=== PATIENT | female | born 1950 | race American Indian/Alaskan Native ===

== ENCOUNTER 2016-04-13 11:05 | Outpatient (CLI) | payer MEDICARE ==
--- NOTE | 2016-04-13 12:08 | Mammography Report ---
Left mammogram: This exam serves as a short-term followup her prior study in September 2015. The patient has a history of prior surgery for cancer in the left breast. In the CC projection better defined on the spot CC compression view and on standard cc views there is as area of scarlike density in the medial breast. This finding is unchanged from her prior exam and had a negative ultrasound at that time. This may represent the site of prior surgery. Impression: Stable scarlike density that could relate to her prior surgery. Recommendation: Repeat evaluation in 6 months with her normal screening yearly mammogram. BI-RADS CATEGORY: 3 = Probably benign ACR BI-RADS MAMMOGRAPHIC CODES: 0 = Needs additional imaging evaluation; 1 = Negative; 2 = Benign; 3 = Probably benign; 4 = Suspicious; 5 = Malignant; 6 = Known biopsy-proven malignancy COMMENT: 1. Dense breast tissue, i.e., adenosis, fibrocystic changes, etc., may obscure an underlying neoplasm. 2. Approximately 10% of cancers are not detected with mammography. 3. A negative mammography report should not delay biopsy if a clinically suspicious mass is present.
== END 2016-04-13 11:06 | disposition home or self-care (01) ==
LOC: SPVWC 11:05
PROVIDERS: ATTEND Internal Medicine
DX: R92.8 Other abnormal and inconclusive findings on diagnostic imaging of breast (principal)
CPT/HCPCS: G0206-LT

== ENCOUNTER 2016-10-17 08:25 | Outpatient (CLI) | payer MEDICARE ==
--- NOTE | 2016-10-17 09:08 | Mammography Report ---
Screening mammogram: Routine views compared to her prior exam in 2016. The patient had a lumpectomy in the upper-outer left breast. There is minimal architectural distortion and a couple surgical clips in the axilla. The overall fibroglandular pattern is heterogeneous and diffusely and symmetrically distributed. No other significant findings. This exam is unchanged compared to prior study. CAD used. Impression: Stable exam. No currently suspicious findings. Recommendation: Annual mammogram followup. BI-RADS CATEGORY: 2 = Benign ACR BI-RADS MAMMOGRAPHIC CODES: 0 = Needs additional imaging evaluation; 1 = Negative; 2 = Benign; 3 = Probably benign; 4 = Suspicious; 5 = Malignant; 6 = Known biopsy-proven malignancy COMMENT: 1. Dense breast tissue, i.e., adenosis, fibrocystic changes, etc., may obscure an underlying neoplasm. 2. Approximately 10% of cancers are not detected with mammography. 3. A negative mammography report should not delay biopsy if a clinically suspicious mass is present.
== END 2016-10-17 08:26 | disposition home or self-care (01) ==
LOC: SPVWC 08:25
PROVIDERS: ATTEND Internal Medicine Hematology & Oncology
DX: Z12.31 Encounter for screening mammogram for malignant neoplasm of breast (principal); C50.419 Malignant neoplasm of upper-outer quadrant of unspecified female breast; I10 Essential (primary) hypertension
CPT/HCPCS: 77067; G0202

== ENCOUNTER 2017-02-11 10:03 | Outpatient (CLI) | payer MEDICARE ==
--- NOTE | 2017-02-11 12:50 | Mammography Report ---
BONE DEXA:02/11/17 10:03:00 CLINICAL: Postmenopausal. No comparison. TECHNIQUE: Two site bone DEXA performed on an Hologic scanner. FINDINGS: The average BMD of the lumbar spine L1-L4 is 1.058g/cm squared with a T-score of -0.8 and a Z-score of +1.2. The average BMD of the left hip is 0.894g/cm squared with a T-score of -0.9 and a Z-score of +0.1. The femoral neck BMD is 0.763g/cm squared with a T score of -1.3 and a Z score of 0. IMPRESSION: 1. WHO classification: Normal with average fracture risk based on lumbar spine measurements. 2. WHO classification: Osteopenia with increased fracture risk based on left femoral neck measurements. RECOMMENDATION: Clinical correlation and routine screening. DEFINITIONS: BMD = Bone Mineral Density T-score = BMD related to mean peak bone mass of young adult (mean expressed in Standard Deviation) Z-score = Age matched BMD expressed in SD World Health Organization (WHO) Diagnostic Criteria Normal T-score > -1 SD Osteopenia T-score between -1 and -2.4 SD Osteoporosis T-score -2.5 SD or below NOTE: BMD is not the only risk factor for fracture. One should also consider factors such as the patient's age, risk of falling, previous osteoporotic fracture, family history of osteoporotic fractures, current smoker, and low body weight. Z-scores are not calculated if >80 years of age.
== END 2017-02-11 10:04 | disposition home or self-care (01) ==
LOC: SPVWC 10:03
PROVIDERS: ATTEND Internal Medicine Hematology & Oncology
DX: M85.88 Other specified disorders of bone density and structure, other site (principal); C50.419 Malignant neoplasm of upper-outer quadrant of unspecified female breast; I10 Essential (primary) hypertension; Z78.0 Asymptomatic menopausal state
CPT/HCPCS: 77080

== ENCOUNTER → 2017-10-23 | Outpatient (CLI) | payer MEDICARE ==
--- NOTE | 2017-10-24 10:50 | Mammography Report ---
BILATERAL DIGITAL SCREENING MAMMOGRAM WITH CAD: 10/23/17 10:23:00 CLINICAL: Routine screening.Breast cancer survivor status post left partial mastectomy and radiation therapy. COMPARISON:10/17/16 FINDINGS: The breasts are heterogeneously dense, which may obscure small masses. Stable left upper outer benign postsurgical scar. Mild skin thickening of the left breast is not significantly changed compared to prior exams. No mass, suspicious architectural distortion or suspicious calcifications. IMPRESSION: No mammographic evidence of malignancy. BI-RADS CATEGORY: 2 -- Benign RECOMMENDATION: Routine mammographic screening in one year. COMMENT: Patient follow-up letters are generated via our [employer] application.
== END | disposition home or self-care (01) ==
LOC: SPVWC 10:23
DX: Z12.31 Encounter for screening mammogram for malignant neoplasm of breast (principal)
CPT/HCPCS: 77067

== ENCOUNTER 2018-10-27 10:32 | Outpatient (CLI) | payer MEDICARE ==
--- NOTE | 2018-10-27 14:28 | Mammography Report ---
BILATERAL DIGITAL SCREENING MAMMOGRAM WITH CAD INDICATION: Routine screening mammography. Breast cancer survivor status post left partial mastectomy and radiation therapy. TECHNIQUE: Digital bilateral 2D mammography was obtained in the craniocaudal and mediolateral obliq ue projections. This examination was interpreted with the benefit of Computer-Aided Detection analysi s. COMPARISON: 10/23/2017 FINDINGS: Breast Density: The breasts are heterogeneously dense, which may obscure small masses. No mass, architectural distortion or suspicious calcifications. The left breast is smaller than the r ight with stable benign upper outer postsurgical scar. Surgical clips in the left axilla. IMPRESSION:No mammographic evidence of malignancy. BI-RADS Category 2: Benign. No mammographic evidence of malignancy. Recommend routine screening ma mmography in one year. A "normal" or negative report should not discourage follow up or biopsy of a clinically significant f inding. A written summary of these findings will be mailed to the patient. The patient will be entered into a mammography reporting system which will generate a reminder letter for the patient's next appointmen t at the appropriate interval. The [employer] recommends yearly mammograms starting at age 40 and continuing as l althea as a woman is in good health. Breast MRI is recommended for women with an approximate 20-25% or greater lifetime risk of breast cancer, including women with a strong family history of breast or ova marlene cancer or who have been treated for Hodgkin's disease. Signer Name: Maxx Lomeli MD Signed: 10/27/2018 2:24 PM Workstation Name: [id number]
== END 2018-10-27 10:33 | disposition home or self-care (01) ==
LOC: SPVWC 10:32
PROVIDERS: ATTEND Internal Medicine Hematology & Oncology
DX: Z12.31 Encounter for screening mammogram for malignant neoplasm of breast (principal)
CPT/HCPCS: 77067

== ENCOUNTER 2018-12-15 08:33 | Outpatient (CLI) | payer MEDICARE ==
--- NOTE | 2018-12-16 10:51 | Magnetic Resonance Report ---
BILATERAL BREAST MR WITHOUT AND WITH GADOLINIUM INDICATION: Newly diagnosed right breast cancer. She had an ultrasound-guided needle biopsy performe d at [facility] 11/24/2018. Pathology: Invasive ductal carcinoma, at least grade 2 and ductal carc inoma in situ, grade 2, solid type. A right axillary lymph node biopsy on the same day revealed benig n reactive lymph node. She also has a personal history of left breast cancer status post left partial mastectomy. COMPARISONS: 10/27/2018 and 11/06/2018 mammograms and 11/06/2018 right breast ultrasound. TECHNIQUE: Axial 1.0 mm T1 without, axial high-resolution 2.0 mm T2 and axial 1.0 mm dynamic vibrant high-resolution postcontrast T1 fat saturation sequences on a 1.5 Carolyn magnet. The examination was p erformed with an 8-channel dedicated [place] breast coil. Post-processing with CAD and subtraction was performed on an [employer] workstation. 17.0 cc of MultiHance was injected without incident for the c ontrast portion of the exam. Consent was obtained prior to the administration of the contrast. FINDINGS: RIGHT BREAST: Minimal background parenchymal enhancement. The known cancer is an irregular enhancing mass in the lower outer quadrant 7.7 cm from the nipple measuring 7.8 x 5.2 x 3.4 mm. It demonstrates heterogeneous enhancement with mixed kinetics, 156% peak enhancement and 17% type III washout. No ot her mass or suspicious enhancement of the right breast. No suspicious right axillary or right interna l mammary lymph nodes. LEFT BREAST: The left breast is smaller than the right. Minimal background parenchymal enhancement. N o mass or suspicious enhancement of the left breast. No suspicious left axillary or left internal kailee severo lymph nodes. IMPRESSION: A 7.8 mm newly diagnosed right breast cancer and no additional suspicious lesion of eithe r breast. No suspicious lymph nodes. BI-RADS Category 6: Known Cancer Signer Name: Maxx Lomeli MD Signed: 12/16/2018 10:46 AM Workstation Name: [id number]
== END 2018-12-15 08:34 | disposition home or self-care (01) ==
LOC: SPVIMAG 08:33
PROVIDERS: ATTEND Surgery
DX: C50.511 Malignant neoplasm of lower-outer quadrant of right female breast (principal)
CPT/HCPCS: A9577; C8908; 77049

== ENCOUNTER 2018-12-31 05:44 | Day surgery (SDC) | payer MEDICARE ==
[~2018-12-31 05:44] MED LIST: ANCEF/STERILE WATER 2 GM/20 ML 2 GM/20 ML SYRINGE IV NR
[2018-12-31] MEDS ORDERED: DECADRON ONE ×2 (07:29→08:24)
[2018-12-31] MEDS ORDERED: MARCAINE-EPI 0.25%-1:200,000 INFILTRATI ONE (07:29)
[2018-12-31] MEDS ORDERED: SUBLIMAZE IV NR (07:30)
[2018-12-31] MEDS ORDERED: METHYLENE BLUE ONE (07:32)
[2018-12-31] MEDS ORDERED: NACL P/F VIAL (10 ML) 0 ML ONE (07:33)
--- NOTE | 2018-12-31 07:43 | Anesthesia Consultation ---
Anesthesia Consult and Med Hx Date of service: 12/31/18 - Airway Anesthetic Teeth Evaluation: Partials (upper and lower) ROM Head & Neck: Adequate Mental/Hyoid Distance: Adequate Mallampati Class: Class II Intubation Access Assessment: Probably Good - Pre-Operative Health Status ASA Pre-Surgery Classification: ASA2 Proposed Anesthetic Plan: General Nerve Block: PEC - Cardiovascular System Hx Hypertension: Yes (SINCE AGE 39) Hx Heart Murmur: Yes (SLIGHT) - Central Nervous System Hx Back Pain: Yes (LOWER) Hx Psychiatric Problems: No - Endocrine Hx Hypothyroidism: Yes - Other Systems Hx Alcohol Use: Yes (SPECIAL OCCA) Hx Substance Use: No Hx Cancer: Yes (breast CA)
--- NOTE | 2018-12-31 07:44 | Anesthesia Day of Surgery ---
Anesthesia Day of Surgery - Day of Surgery Patient Examined: Yes Patient H&P Reviewed: Yes Patient is NPO: Yes
[2018-12-31] MEDS ORDERED: SUBLIMAZE IV ONE (07:49)
[2018-12-31] MEDS ORDERED: DIPRIVAN 10 MG/ML IV ONE (07:56)
[2018-12-31] MEDS ORDERED: DILAUDID ONE (07:56)
[2018-12-31] MEDS ORDERED: XYLOCAINE MPF 2% ONE (07:57)
[2018-12-31] MEDS ORDERED: DILAUDID IV PRN (08:00)
[2018-12-31] MEDS ORDERED: GABAPENTIN PO NR (08:00)
[2018-12-31] MEDS ORDERED: LACTATED RINGERS 1,000 ML IV SCH (08:00)
[2018-12-31] MEDS ORDERED: VERSED IV NR (08:00)
[2018-12-31] MEDS ORDERED: WATER FOR IRRIG STERILE IR ONE (09:48)
[2018-12-31] MEDS ORDERED: LACTATED RINGERS 1,000 ML ONE (10:04)
--- NOTE | 2018-12-31 10:37 | Operative Report ---
Operative Report Operative Report: December 31, 2018 Preoperative diagnosis: Right breast cancer of the upper outer quadrant Postoperative diagnosis: Same Procedure: Right partial mastectomy of the upper outer quadrant and SLNB Surgeon: Flores Nicholas MD Server: Christel García MD Anesthesia: General Findings: Right breast clip present within radiograph specimen; x 4 SLNs and one SLN with clip present Complications: None EBL: Minimal Disposition: PACU in good condition Indications for operative procedure: This is a 68 year old lady with newly diagnosed right breast cancer of the lower outer quadrant, Stage I [id number] triple negative (IDCA around 7:00 position). She has a personal history of left breast cancer post prior treatment and recent genetic testing with no significant gene mutation and breast MRI with known area of cancer. Recent CT chest with suspicious right axillary lymph node that was recently biopsied and found to be negative. Recommendations were to repeat right axillary lymph node biopsy and patient declined and wanted to proceed with surgery. Patient wished to proceed with breast conservation. She understands the role of adjuvant radiation therapy and the role of adjuvant chemotherapy by medical oncology. She wished to proceed with the above procedure. Procedure in detail: Anesthesia placed right pectoral block. Patient was then taken to the operating room. Gen. anesthesia was administered. The right nipple was injected with radioisotope. Right breast and axilla were prepped and draped in the normal sterile operative fashion. Timeout was performed. Gamma probe was inserted into the axilla. The area of hot spot was identified. A right axillary incision was made with a 15 blade knife with dissection taken down to the subcutaneous tissues. The axillary fascia was opened with the Bovie cautery. 4 SLNs were identified. All remaining counts were less than 10% of the highest count. Lymph nodes were sent to pathology for permanent processing. Hemostasis was obtained in the right axillary cavity. Axillary cavity was appropriately irrigated and suctioned. Hemostasis was noted. Axillary fascia was approximated and closed using interrupted 3-0 Vicryl and the skin brought together and closed using a running 4-0 Monocryl followed by skin affix. Ultrasound was used to examine SLNs with second lymph node noted with clip present from recent biopsy. Attention was then taken towards the right breast. The ultrasound was used to kathleen the area of known cancer at the 7:00 position 6-8 cm from the nipple. Skin would need to be resected given close promixity to the skin. Lateral breast incision was made with a 15 blade knife and dissection taken down to subcutaneous tissues. First began raising of the superior flap with dissection take down to the pectoralis muscle, followed by raising of the inferior flap, medial flap and lateral flap with all flaps taken down posteriorly for about 4 cm. The breast area of concern was appropriately removed posteriorly with the aid of the Bovie cautery. Specimen was marked and then sent to pathology and radiology; radiograph specimen with clip present. Breast cavity was irrigated and hemostasis was obtained. The subcutaneous tissues were approximated and closed using interrupted 3-0 Vicryl followed by closing of the skin with a running 4-0 Monocryl and dermabond. The patient tolerated surgery very well and she was awaken from anesthesia without any complication and transported to PACU in good condition.
--- NOTE | 2018-12-31 10:38 | Short Stay Summary ---
Short Stay Documentation Date of service: 12/31/18 - History H&P: obtained from office - Allergies and Medications Current Medications: Allergies No Known Allergies Allergy (Verified 12/26/18 12:31) Home Medications Medication Instructions Recorded Confirmed Last Taken Type Amlodipine Besylate/Benazepril 1 each PO DAILY 12/26/18 12/31/18 12/30/18 09:00 History [Amlodipine-Benazepril 10-40 mg] Kevin/D3/Mag11/Zinc/Acid Dipper/Terry/Bor 1 each PO DAILY 12/26/18 12/26/18 Unknown History [Caltrate 600+D Plus Tablet] Levothyroxine [Synthroid] 75 mcg PO QAM 12/26/18 12/31/18 12/31/18 04:00 History hydroCHLOROthiazide [HCTZ] 25 mg PO QDAY 12/26/18 12/31/18 12/30/18 09:00 History HYDROcodone/APAP 5-325 [[place] 1 each PO Q6HR PRN #12 tablet 12/31/18 Unknown Rx 5/325] Active Medications Celecoxib (Celebrex) 200 mg PO PREOP NR Stop: 12/31/18 21:00 Last Admin: 12/31/18 07:28 Dose: 200 mg Documented by: Fentanyl (Sublimaze) 100 mcg IV ONCE NR Stop: 12/31/18 19:00 Gabapentin (Neurontin) 300 mg PO PREOP NR Stop: 12/31/18 21:00 Last Admin: 12/31/18 07:28 Dose: 300 mg Documented by: Hydromorphone HCl (Dilaudid) 0.5 mg IV Q10MIN PRN PRN Reason: Pain , Severe (7-10) Stop: 12/31/18 17:00 Cefazolin Sodium (Ancef/Sterile Water 2 Gm/20 Ml) 2 gm in 20 mls @ 80 mls/hr IV PREOP NR; Protocol Stop: 12/31/18 23:59 Lactated Ringer's (Lactated Ringers) 1,000 mls @ 100 mls/hr IV DIRECT TONNY Last Admin: 12/31/18 07:30 Dose: 100 mls/hr Documented by: Midazolam HCl (Versed) 2 mg IV PREOP NR Stop: 12/31/18 23:59 Last Admin: 12/31/18 07:40 Dose: 2 mg Documented by: - Brief post op/procedure progress note Date of procedure: 12/31/18 Pre-op diagnosis: Right Breast Cancer Post-op diagnosis: same Procedure: Right Breast Partial Mastectomy, [place] Lymph node biopsy Anesthesia: SMITA Surgeon: KATIE STAFFORD Salvationist: EDVIN FRIEND (MARIA EUGENIA SOTO) Estimated blood loss: minimal Pathology: list Specimen disposition: to lab Condition: stable - Disposition Condition at discharge: Stable Disposition: - TO HOME OR SELFCARE Short Stay Discharge Plan Follow up with: CECILIA OWUSU MD [Primary Care Provider] - 7 Days Prescriptions: HYDROcodone/APAP 5-325 [[place] 5/325] 1 each PO Q6HR PRN #12 tablet PRN Reason: Pain
[2018-12-31] MEDS ORDERED: NORCO 5/325 PO PRN (11:20)
[2018-12-31 15:47] VITALS: BP 121/68
--- NOTE | 2018-12-31 18:40 | Post Anesthesia Evaluation ---
- Post Anesthesia Evaluation Patient Participated: Yes Airway Patent: Yes Stable Respiratory Function: Yes Nausea/Vomiting: No Temp > 96.8F: Yes Pain Manageable: Yes Adequeate Hydration: Yes Anesthesia Complications: No
--- NOTE | 2019-01-01 08:22 | Mammography Report ---
SPECIMEN RADIOGRAPH RIGHT BREAST History: POST EXC BX Comparison: 11/24/2018 Findings: A mass with a biopsy clip is identified within the specimen. IMPRESSION: Excision of the known cancer. Signer Name: Maxx Lomeli MD Signed: 01/01/2019 8:17 AM Workstation Name: [id number]
== END 2018-12-31 13:53 | disposition home or self-care (01) ==
LOC: OR 05:44
PROVIDERS: ATTEND Surgery
DX: C50.411 Malignant neoplasm of upper-outer quadrant of right female breast (principal); E78.00 Pure hypercholesterolemia, unspecified; I10 Essential (primary) hypertension; E03.9 Hypothyroidism, unspecified; Z72.89 Other problems related to lifestyle; Z80.42 Family history of malignant neoplasm of prostate; Z79.899 Other long term (current) drug therapy; Z98.51 Tubal ligation status; Z98.890 Other specified postprocedural states
CPT/HCPCS: 19301; 38525; 38792; 76098; 78800; 88307; 88333; 88342; A9541; J0690; J0735; J1100; J1170; J2250; J2704; J3010; J7120; 64450; Q9968

== ENCOUNTER 2019-02-16 09:54 | Day surgery (SDC) | payer MEDICARE ==
--- NOTE | 2019-02-15 13:24 | Short Stay Summary ---
Short Stay Documentation Date of service: 02/16/19 - History H&P: obtained from office - Allergies and Medications Current Medications: Allergies No Known Allergies Allergy (Verified 02/13/19 12:22) Home Medications Medication Instructions Recorded Confirmed Last Taken Type Amlodipine Besylate/Benazepril 1 each PO DAILY 12/26/18 02/13/19 12/30/18 09:00 History [Amlodipine-Benazepril 10-40 mg] Kevin/D3/Mag11/Zinc/Special Investigator/Terry/Bor 1 each PO DAILY 12/26/18 02/13/19 Unknown History [Caltrate 600+D Plus Tablet] Levothyroxine [Synthroid] 75 mcg PO QAM 12/26/18 02/13/19 12/31/18 04:00 History hydroCHLOROthiazide [HCTZ] 25 mg PO QDAY 12/26/18 02/13/19 12/30/18 09:00 History HYDROcodone/APAP 5-325 [[place] 1 each PO Q6HR PRN #12 tablet 12/31/18 02/13/19 Unknown Rx 5/325] - Physical exam General appearance: no acute distress Integumentary: no rash, no growths Lungs: Normal air movement Neurological: Normal speech - Brief post op/procedure progress note Date of procedure: 02/16/19 (dictation: [id number]) Pre-op diagnosis: right breast cancer Post-op diagnosis: same Procedure: Port placement with US guidance IVF 900cc EBL<5cc Anesthesia: GETA Findings: unable to pass wire from left side Surgeon: SESAR HOYT Estimated blood loss: minimal Pathology: none Condition: stable - Disposition Condition at discharge: Stable Disposition: DC-01 TO HOME OR SELFCARE Short Stay Discharge Plan Activity: advance as tolerated Diet: regular Wound: open to air, keep clean and dry Special Instructions: no heavy lifting Additional Instructions: Post Operative Instructions Activity: no heavy lifting for next 1 week. May shower tomorrow. Pat dry the wound or wounds. Keep incision sites clean and dry After surgery, start with a light diet. Consider having a liquid diet first. If you do well, you can advance to a regular diet as you feel comfortable. Apply an ice pack to the wound or wounds for 10-20 minutes at a time. Do this at least 4-5 times a day. You can do it more if he would like. Alternate the use of ibuprofen and Tylenol for the first 2 days. I want you to take these on a scheduled basis. Take 600 mg of ibuprofen every 6 hours. Take 500 mg of Tylenol every 6 hours. You should alternate these 2 medicines. In other words, beginning with the ibuprofen. After 3 hours, take the Tylenol. Keep alternating the 2 drugs every 3 hours. Do this on a scheduled basis for the first 2 days. After that, you can take them as needed. It is very important that you use the prescription pain medicine only for very severe pain. Do not take the prescription medicine before you try using the ibuprofen and Tylenol. We will call you in a couple of days to see how youre doing. If you have any questions or concerns, always feel free to call the clinic at any time. Follow up with: CECILIA OWUSU MD [Primary Care Provider] - 7 Days Forms: Outpatient Surgery DC Inst. Prescriptions: RX: HYDROcodone/APAP 5-325 [[place] 5-325 mg TAB] 1 each PO Q6HR PRN #5 tablet PRN Reason: Pain , Severe (7-10)
[~2019-02-16 09:54] MED LIST changes: +ACETAMINOPHEN 500 MG TAB PO NR; -ANCEF/STERILE WATER 2 GM/20 ML 2 GM/20 ML SYRINGE IV NR; +CELECOXIB 200 MG CAP PO NR; +GABAPENTIN 300 MG CAP PO NR; +SODIUM CHLORIDE 0.9% 1000 ML 1,000 ML IV SCH; +ceFAZolin/Water 2 GM/20 ML 2 GM/20 ML SYRINGE IV NR
--- NOTE | 2019-02-16 11:12 | Anesthesia Day of Surgery ---
Anesthesia Day of Surgery - Day of Surgery Patient Examined: Yes Patient H&P Reviewed: Yes Patient is NPO: Yes
--- NOTE | 2019-02-16 11:15 | Anesthesia Consultation ---
Anesthesia Consult and Med Hx Date of service: 02/16/19 - Airway Anesthetic Teeth Evaluation: Good, Partials ROM Head & Neck: Adequate Mental/Hyoid Distance: Adequate Mallampati Class: Class II Intubation Access Assessment: Probably Good - Pre-Operative Health Status ASA Pre-Surgery Classification: ASA2 Proposed Anesthetic Plan: General - Pulmonary Hx Sleep Apnea: (HIGH MARIANA RISK) - Cardiovascular System Hx Hypertension: Yes (SINCE AGE 39) Hx Heart Murmur: Yes (SLIGHT) - Central Nervous System Hx Back Pain: Yes (LOWER) Hx Psychiatric Problems: No - Endocrine Hx Thyroid Disease: Yes (S/P radiation) Hx Hypothyroidism: Yes - Other Systems Hx Alcohol Use: Yes (SPECIAL OCCA) Hx Substance Use: No Hx Cancer: Yes (Right Breast) - Additional Comments Anesthesia Medical History Comments: PONV
[2019-02-16] MEDS ORDERED: fentaNYL 100 MCG/2 ML INJ ONE (11:32)
[2019-02-16] MEDS ORDERED: PROPOFOL 200 MG/20 ML VIAL IV ONE (11:32)
[2019-02-16] MEDS ORDERED: LIDOCAINE MPF (2%) 20 MG/1 ML VIAL 5 ML ONE (11:32)
[2019-02-16] MEDS ORDERED: MIDAZOLAM 2 MG/2 ML INJ ONE (11:32)
[2019-02-16] MEDS ORDERED: LIDOCAINE (2%) 20 MG/1 ML VIAL 20 ML MDV INFILTRATI ONE (11:54)
[2019-02-16] MEDS ORDERED: BUPIVACAINE-EPINEPHRINE/PF 0.5%-1:200,000 (30 ML) VIAL INFILTRATI ONE ×2 (11:54→13:11)
[2019-02-16] MEDS ORDERED: HEPARIN 10,000 UNITS/10 ML VIAL ONE (11:54)
[2019-02-16] MEDS ORDERED: GELATIN SPONGE SIZE 100 TP ONE (11:55)
[2019-02-16] MEDS ORDERED: SODIUM CHLORIDE 0.9% 250ML 250 ML ONE (11:55)
[2019-02-16] MEDS ORDERED: LIDOCAINE (1%) 10 MG/1 ML VIAL 20 ML MDV ONE (11:56)
[2019-02-16] MEDS ORDERED: MIDAZOLAM 2 MG/2 ML INJ IV NR (12:00)
[2019-02-16] MEDS ORDERED: ePHEDrine SULFATE 50 MG/1 ML INJ ONE (12:28)
[2019-02-16] MEDS ORDERED: KETOROLAC 30 MG/1 ML INJ ONE (12:30)
[2019-02-16] MEDS ORDERED: ONDANSETRON 4 MG/2 ML INJ ONE (12:30)
[2019-02-16] MEDS ORDERED: SODIUM CHLORIDE 0.9% 100 ML ONE (12:41)
[2019-02-16] MEDS ORDERED: SODIUM CHLORIDE P/F VIAL 10 ML 10 ML ONE (12:56)
[2019-02-16] MEDS ORDERED: LIDOCAINE (1%) 10 MG/1 ML VIAL 20 ML MDV INFILTRATI ONE (13:11)
[2019-02-16] MEDS ORDERED: HEPARIN 10,000 UNITS/10 ML VIAL IV ONE (13:11)
[2019-02-16] MEDS ORDERED: SODIUM CHLORIDE 0.9% 250 ML IVPB IV ONE (13:11)
[2019-02-16] MEDS ORDERED: SODIUM CHLORIDE 0.9% P/F 10 ML VIAL INFILTRATI ONE (13:11)
--- NOTE | 2019-02-16 14:00 | Fluoroscopy Report ---
INTRAOPERATIVE FLUOROSCOPY: CHEST INDICATION / CLINICAL INFORMATION: RT BREAST CANCER (RT INFUSAPORT INSERTION). TECHNIQUE: Intraoperative spot images were obtained during the procedure. FINDINGS: Postoperative radiographic image of the chest shows a right IJ port catheter with tip probably in the right atrium. Right lung overall is clear. There is a dense left retrocardiac opacity with air bronchograms,most li frederick representing atelectasis of a portion of the left lower lobe in this postoperative patient, alth ough the appearance is nonspecific. A small left pleural effusion is not excluded. Surgical clips pro ject at the left axilla. Fluoroscopy Time: 4.4 minutes. Fluoroscopy Images: 0. The provided image is a portable AP chest radio graph. Signer Name: Bernabe Lane MD Signed: 02/16/2019 1:56 PM Workstation Name: [id number]
--- NOTE | 2019-02-16 15:13 | Operative Report ---
PREOPERATIVE DIAGNOSIS: Right breast cancer. POSTOPERATIVE DIAGNOSIS: Right breast cancer. PROCEDURE: 1. Insertion of tunneled centrally inserted central venous access device with subcutaneous port. 2. Ultrasound guidance for vascular access. ATTENDING PHYSICIAN: Masood Cisse MD ANESTHESIA: General. ESTIMATED BLOOD LOSS: Minimal. FLUIDS: 900 mL. FINDINGS: Inability to pass guidewire through left innominate vein to the superior vena cava. IMPLANTS: Smart port. DRAINS: None. COMPLICATIONS: None. DISPOSITION: Stable, transferred to Recovery Room. INDICATIONS: This is a 68-year-old female with a history of breast cancer on the left side and now with a new diagnosis of breast cancer on the right. The patient is in need of chemotherapy. The patient was referred to General Surgery for port placement. Procedure, risks, benefits were explained to the patient. Risks included but were not limited to infection, bleeding, pain, injury to surrounding structures, possible need for further procedures in the future. The patient understood and consented. OPERATIVE NOTE: The patient was brought to the operating room and placed on the table in supine position. After adequate general anesthesia was established, the patient was prepped and draped in usual sterile fashion. Antibiotics have been given prior to start of the case. SCDs were in place. Time-out was called. The patient was in Trendelenburg position. Towel roll was underneath the shoulders. Head was rotated to the right very slightly. Under ultrasound guidance, I identified the left internal jugular vein. It appeared to be widely patent and easily compressible. Access point was identified. Area was anesthetized. Small incision was made. Introducer needle was inserted under ultrasound guidance. Under ultrasound guidance, the introducer needle was placed into the internal jugular vein. We had good aspiration of blood. It was nonpulsatile. A guidewire was passed. However, I was unable to pass it to its normal length. We brought fluoroscopy in and to look, it appeared as though near the junction of the left and right innominate veins the guidewire would not pass into the superior vena cava. Despite turning the patient in different directions, we were unable to get the guidewire to pass. I ultimately aborted on this side and went to the right side. This side had already been prepped previously. We repeated the same procedure going this time on the right internal jugular vein. At this time, the guidewire that comes with the kit was unable to be passed; however, a slightly heavier guidewire went easily into the right side of the heart. We had no ectopy. I anesthetized the planned pocket site on the right side in the upper chest. Skin was sharply incised. Subcutaneous pocket was created with a combination of blunt dissection and electrocautery. Once this was done, we then tunneled the catheter up to the neck. Dilator and sheath were passed over the guidewire, it passed easily. I checked the position with fluoroscopy just to make sure. We then removed the dilator and the guidewire. Catheter was inserted. We adjusted the length and then cut the catheter at approximately 30 cm to attach the port. It sat in the pocket very nicely. We had good aspiration and easy flushing. We then put the catheter into position and removed the sheath. Under fluoroscopy, we could see the tip of the catheter was at least 2 vertebral bodies below the herman. There was no kinking or unusual banding in the catheter. Locking solution was administered without any difficulty. The patient was placed in reverse Trendelenburg position. Additional local was injected into the catheter tract site as well as surrounding the port, 3-0 Vicryl was used to close the deep layer of the port pocket with interrupted stitches. Skin was then closed with 4-0 Monocryl subcuticular stitches. Skin was cleaned and dried. Dermabond was placed. The patient tolerated the procedure well. There were no complications. All counts were correct at the end of the case. I spoke with and to explain why we had to go on both sides of the neck. Chest x-ray is pending at the time of this dictation. JOB# [id number] ASHLEE/JOSE ANGEL
[2019-02-16 16:58] VITALS: BP 136/58
--- NOTE | 2019-02-16 17:00 | Post Anesthesia Evaluation ---
- Post Anesthesia Evaluation Patient Participated: Yes Airway Patent: Yes Stable Respiratory Function: Yes Nausea/Vomiting: No Temp > 96.8F: Yes Pain Manageable: Yes Adequeate Hydration: Yes Anesthesia Complications: No Block Receding Appropriately: Not Applicable Patient on Ventilator: No
== END 2019-02-16 09:55 | disposition home or self-care (01) ==
LOC: OR 09:54
PROVIDERS: ATTEND Surgery
DX: C50.911 Malignant neoplasm of unspecified site of right female breast (principal); E78.00 Pure hypercholesterolemia, unspecified; I10 Essential (primary) hypertension; G47.30 Sleep apnea, unspecified; E03.9 Hypothyroidism, unspecified; Z90.11 Acquired absence of right breast and nipple; Z98.51 Tubal ligation status; Z79.899 Other long term (current) drug therapy; Z72.89 Other problems related to lifestyle; Z98.890 Other specified postprocedural states; Z80.42 Family history of malignant neoplasm of prostate
CPT/HCPCS: 36561; 77001; J0690; J1644; J2250; J2704; J3010; J7030; J7050; A4649; C1769; C1788; J1885; J2405